=== PATIENT | male | born 1980 | race Asian ===

== ENCOUNTER 2021-04-09 17:57 | Emergency (ER) | payer OTHER ==
[~2021-04-09] VITALS: Ht 160 cm; Wt 68.0 kg
[2021-04-09 18:07] VITALS: BP 156/99
[2021-04-09] MEDS ORDERED: LIDOCAINE HCL/MPF 1% 30 ML VIAL IJ ONE (18:13)
[2021-04-09] MEDS ORDERED: TDAP [DIPH/PERTUSSIS/TET] 0.5 ML VIAL IM ONE (18:30)
[2021-04-09] MEDS ORDERED: LIDOCAINE HCL/PF 1% 30 ML VIAL IM ONE (18:30)
--- NOTE | 2021-04-09 19:00 | NUR ---
Patient discharged to home in stable condition. Written and verbal after care instructions given. Patient verbalizes understanding of instruction.
== END 2021-04-09 19:00 | disposition home or self-care (01) ==
LOC: ER 18:01
DX: S61.412A Laceration without foreign body of left hand, initial encounter (principal); Z88.0 Allergy status to penicillin; W26.0XXA Contact with knife, initial encounter; Y93.89 Activity, other specified; Y92.098 Other place in other non-institutional residence as the place of occurrence of the external cause; Y99.8 Other external cause status
CPT/HCPCS: 12001; 99282; J3490

== ENCOUNTER 2021-04-19 10:03 | Emergency (ER) | payer OTHER ==
[~2021-04-19] VITALS: Ht 160 cm; Wt 68.0 kg
[2021-04-19 10:15] VITALS: BP 139/93
--- NOTE | 2021-04-19 10:17 | NUR ---
Patient presents to ER for follow up on L hand stitches removal. Patient is alert and orientedx4 No signs of infection noted. Patient denies pain or discomfort. No respiratory distress noted. Awaiting md whitfield.
--- NOTE | 2021-04-19 10:26 | NUR ---
Patient discharged to home in stable condition. Written and verbal after care instructions given. Patient verbalizes understanding of instruction.
== END 2021-04-19 10:27 | disposition home or self-care (01) ==
LOC: ER 10:08
DX: S61.412D Laceration without foreign body of left hand, subsequent encounter (principal); Z88.0 Allergy status to penicillin; X58.XXXD Exposure to other specified factors, subsequent encounter